=== PATIENT | male | born 1970 | race Hispanic/Latino ===

== ENCOUNTER 2021-05-04 13:32 | Emergency (ER) | payer BC ==
[~2021-05-04] VITALS: Ht 170.2 cm; Wt 85.3 kg
[2021-05-04] MEDS ORDERED: SODIUM CHLORIDE 0.9% 100 ML ONE (13:58)
[2021-05-04] MEDS ORDERED: CASIRIVIMAB/IMDEVIMAB 10 ML in SODIUM CHLORIDE 0.9% 100 ML IV ONE (14:00)
[2021-05-04] MEDS ORDERED: ALBUTEROL SULFATE HFA 8GM INHALATION AEROSOL INH PRN (14:00)
[2021-05-04] MEDS ORDERED: DOXYCYCLINE HY100 MG PO (15:10)
[2021-05-04] MEDS ORDERED: ALBUTEROL1.25 MG/3 NEB (15:10)
== END 2021-05-04 15:40 | disposition home or self-care (01) ==
LOC: ER 13:36
DX: R05 Cough (principal); U07.1 COVID-19; J18.9 Pneumonia, unspecified organism
CPT/HCPCS: 71045; 99283; J7050